=== PATIENT | female | born 1995 | race Caucasian/White ===

== ENCOUNTER 2016-12-20 13:55 | Emergency (ER) | payer OTHER ==
[~2016-12-20] VITALS: Ht 172.7 cm; Wt 67.5 kg
[~2016-12-20 13:55] MED LIST: ESCITALOPRAM OX10 MG PO; ESCITALOPRAM OX20 MG PO; METHADONE 22 MG/1 ML PO; STRATTERA40 MG PO; TRAZODONE HCL100 MG PO
[2016-12-20] MEDS ORDERED: METHADONE10 MG PO (14:03)
[2016-12-20 14:25] LABS: MCH 29.9 PG (29.0-34.0); MCHC 34.3 G/DL (30.0-36.0); MCV 87.1 FL (83-99); PLATELET COUNT 195 K/uL (156-360); RBC DIS.WIDTH-CV 12.6 % (11.8-14.6); RBC DIS.WIDTH-SD 40.4 % (39-53); RED BLOOD COUNT 4.02 M/uL (3.80-5.20)
[2016-12-20 14:34] LABS: CHLORIDE 106 mEq/L (99-109); POTASSIUM 3.7 mEq/L (3.7-5.4); SODIUM 138 mEq/L (136-147)
[2016-12-20 14:35] LABS: GLUCOSE 98 mg/dL (70-99)
[2016-12-20 14:37] LABS: ANION GAP 6 MEQ/L (2-14)
[2016-12-20 14:39] LABS: GFR ESTIMATE (CALCULATED) > 59 mL/min/
[2016-12-20 14:40] LABS: UREA NITROGEN (BUN) 14 mg/dL (9-23)
[2016-12-20 14:47] LABS: QUANTITATIVE HCG < 4.0 MIU/ML
[2016-12-20 15:50] VITALS: BP 128/80
== END 2016-12-20 16:03 | disposition home or self-care (01) ==
LOC: EME 13:55
PROVIDERS: Emergency Medicine
DX: R55 Syncope and collapse (principal); F17.200 Nicotine dependence, unspecified, uncomplicated
CPT/HCPCS: 80048; 84702; 85027; 93005; 99281; 99284